=== PATIENT | female | born 1995 | race African-American/Black ===

== ENCOUNTER 2016-09-05 00:10 | Emergency (ER) | payer OTHER ==
[~2016-09-05] VITALS: Ht 170.2 cm; Wt 55.0 kg
[2016-09-05 00:13] VITALS: BP 142/88; PULSE 86; RESP 16; TEMP 98.2; O2SAT 100
--- NOTE | 2016-09-05 00:37 | PD ---
HPI Chief Complaint: Skin Problem Time Seen by Provider: 00:33 Travel History International Travel<30 days: No Contact w/Intl Traveler<30days: No Traveled to known affect area: No History of Present Illness HPI Patient comes in complaining of a pruritic rash right forearm that began approximately 2 hours prior to arrival. Patient denies doing anything for this prior to coming to the emergency department. Denies any respiratory involvement , throat closing sensation, spreading of the rash, known new environmental allergen exposure (including but not limited to: Soaps, lotions, detergents, medications, foods, drugs, pets, or furniture). Patient states she's had similar rashes in the past on her legs usually ago away after a day or 2 without any treatment. Patient states she got concerned as this was on her forearm and she's never had it there before. PFSH Past Medical History Medical History: Denies Significant Hx ?: Not Social History Tobacco Use: No Substance Use: No Allergies-Medications (Allergen,Severity, Reaction): Coded Allergies: No Known Allergies (Unverified , 09/05/16) Reported Meds & Prescriptions Reported Meds & Active Scripts Active Pepcid (Famotidine) 20 Mg Tab 20 Mg PO BID 10 Days Prednisone (21) 5 mg tab Dose Pack (Prednisone) 5 Mg Dspk 5 Mg PO DIRECTED Review of Systems Except as stated in HPI: all other systems reviewed are Neg Physical Exam Narrative GENERAL: Well-developed, well nourished, in no acute distress, and non-ill appearing. SKIN: Warm and dry. Smooth blanching rash noted on right forearm. It is nontender, afebrile, nonfluctuant, and without crepitus or drainage. HEAD: Atraumatic. Normocephalic. EYES: Pupils equal and round. EOMI. No scleral icterus. No injection or drainage. ENT: No nasal bleeding or discharge. Mucous membranes pink and moist. NECK: Trachea midline. Supple. No nuclear rigidity. CARDIOVASCULAR: Regular rate and rhythm. No murmur appreciated. RESPIRATORY: No accessory muscle use. No respiratory distress. Clear to auscultation. Breath sounds equal bilaterally. No stridor. MUSCULOSKELETAL: No obvious deformities. No clubbing. No cyanosis. No edema. Full range of motion. NEUROLOGICAL: Awake and alert. No obvious cranial nerve deficits. Motor grossly within normal limits. Normal speech. PSYCHIATRIC: Appropriate mood and affect; insight and judgment normal. Data Data Last Documented VS Vital Signs Date Time Temp Pulse Resp B/P Pulse Ox O2 Delivery O2 Flow Rate FiO2 09/05/16 00:13 98.2 86 16 142/88 100 Orders Prednisone (Deltasone) (09/05/16 00:45) Famotidine (Pepcid) (09/05/16 00:45) Cetirizine (Zyrtec) (09/05/16 00:45) MDM Medical Decision Making Medical Screen Exam Complete: Yes Emergency Medical Condition: Yes Differential Diagnosis Allergic reaction, rash, scabies, folliculitis, other Narrative Course There were no blisters or bullae, target lesions, purpura or petechia, nor vesiculobullous or scarlatiniform lesions. The patient looks great and was non- ill appearing. There was no evidence to suggest scabies, cellulitis, folliculitis or abscess, Staph. Scalded Skin Syndrome, Toxic Shock, Toxic Epidermal necrolysis, Kawasakis, Measles, Rubella, cutaneous T cell lymphoma, Erythema Multiforme (minor or major). Plan of care was discussed with the patient and the patient is to follow up with their physician. The patient agreed with plan. Patient in no obvious distress upon re-evaluation. Patient was asked if they wanted to speak to my attending, which the patient did not wish to do at this time. Any questions/concerns in reference to patient diagnosis/condition discussed and clarified prior to patient's discharge. Reinforced sheer importance of close follow up with patient's primary physician or primary care clinic. Instructed patient to return to ED immediately, if symptoms return/ worsen. Pt showed understanding of above instructions. Further instructions and recommendations were detailed in discharge paperwork. Pt ambulated without difficulty out of ED at discharge. Diagnosis Primary Impression: Rash Patient Instructions: Acute Rash (ED), General Instructions Additional Instructions: Follow-up with your primary care physician in 2-3 days for evaluation. Take all medication as prescribed. Use [id number] Benadryl or Claritin or Zyrtec as needed for symptomatic relief. Follow instructions on the packaging. Return to the emergency department if symptoms get worse. Med/Other Pt SpecificInfo: Prescription(s) given Scripts Famotidine (Pepcid)20 Mg Tab20 Mg PO BID 10 Days Ref 0 Prov:Yosi Rea MD 09/05/16 Prednisone (21) 5 mg tab Dose Pack 5 Mg Dspk5 Mg PO DIRECTED #1 DSPK Ref 0 Prov:Yosi Rea MD 09/05/16 Disposition: 01 DISCHARGE HOME Condition: Stable Juanito Huntley Sep 05, 2016 00:37
[2016-09-05] MEDS ORDERED: FAMO1TAB37 PO (00:38)
[2016-09-05] MEDS ORDERED: PRED5PAK PO (00:38)
[2016-09-05] MEDS ORDERED: FAMOTIDINE 20 MG TAB PO ONE (00:45)
[2016-09-05] MEDS ORDERED: predniSONE 20 MG TAB PO ONE (00:45)
[2016-09-05] MEDS ORDERED: CETIRIZINE HCL 10 MG TAB PO ONE (00:45)
== END 2016-09-05 01:45 | disposition home or self-care (01) ==
LOC: NEPB 00:10
DX: R21 Rash and other nonspecific skin eruption (principal)
CPT/HCPCS: 99282; J7512

== ENCOUNTER 2016-10-03 15:03 | Emergency (ER) | payer SELFPAY ==
[~2016-10-03] VITALS: Ht 165.1 cm; Wt 68.0 kg
[~2016-10-03 15:03] MED LIST: FAMO1TAB37 PO; PRED5PAK PO
[2016-10-03 15:05] VITALS: BP 144/71; PULSE 95; RESP 15; TEMP 98; O2SAT 99
--- NOTE | 2016-10-03 17:02 | PD ---
HPI Chief Complaint: Driller Machine Problem/Complaint Time Seen by Provider: 17:00 Travel History International Travel<30 days: No Contact w/Intl Traveler<30days: No Traveled to known affect area: No History of Present Illness HPI 21-year-old female presents to the emergency Department with complaint of vaginal swelling and discharge that started approximately 10 AM this morning. Reports itchiness to her vagina earlier, but not now. Denies foul odor, vaginal lesions, STD exposure. Denies dysuria, urinary frequency, hematuria. Denies abdominal pain, pelvic pain, nausea, vomiting, fever, chills. Denies vaginal bleeding. Has not taken any medications or tried any treatments to alleviate her symptoms. Last menstrual period was September 22. Denies contraception use. No known allergies. Denies significant past medical history. Dr. Amaro is her primary care provider. No other modifying factors or associated signs and symptoms. PFSH Past Medical History Diminished Hearing: No ?: Not LMP: 09/22/16 Social History Alcohol Use: Yes (OCC) Tobacco Use: No Substance Use: No Allergies-Medications (Allergen,Severity, Reaction): Coded Allergies: No Known Allergies (Unverified , 10/03/16) Reported Meds & Prescriptions Reported Meds & Active Scripts Active No Active Prescriptions or Reported Medications Review of Systems Except as stated in HPI: all other systems reviewed are Neg Physical Exam Narrative GENERAL: Well-nourished, well-developed female female patient, in no acute distress; afebrile, nontoxic-appearing SKIN: Warm and dry. HEAD: Atraumatic. Normocephalic. EYES: Pupils equal and round. No scleral icterus. No injection or drainage. ENT: Mucous membranes pink and moist. NECK: Trachea midline. No lymphadenopathy. CARDIOVASCULAR: Regular rate and rhythm. No murmur appreciated. RESPIRATORY: No accessory muscle use. Clear to auscultation. Breath sounds equal bilaterally. GASTROINTESTINAL: Abdomen soft, non-tender, nondistended. Bilateral pelvic region nontender to palpation. Hepatic and splenic margins not palpable. No guarding, rigidity, rebound tenderness. PELVIC: Speculum exam reveals slightly edematous and erythematous cervix with thick white discharge. Bimanual exam reveals no palpable masses or adnexa tenderness, no uterine tenderness. Negative cervical motion tenderness. MUSCULOSKELETAL: No obvious deformities. No clubbing. No cyanosis. No edema. NEUROLOGICAL: Awake and alert. No obvious cranial nerve deficits. Motor grossly within normal limits. Normal speech. PSYCHIATRIC: Appropriate mood and affect; insight and judgment normal. BACK: No CVA tenderness. Data Data Last Documented VS Vital Signs Date Time Temp Pulse Resp B/P Pulse Ox O2 Delivery O2 Flow Rate FiO2 10/03/16 15:05 98.0 95 15 144/71 99 Orders Gc And Chlamydia Pcr (10/03/16 16:29) Wet Prep Profile (10/03/16 16:29) Urinalysis - C+S If Indicated (10/03/16 16:29) Ed Urine Pregnancytest Poc (10/03/16 16:29) Azithromycin Powd Pack (Zithromax Powd P (10/03/16 17:30) Ceftriaxone Inj (Rocephin Inj) (10/03/16 17:30) Lidocaine 1% Inj (50 Ml) (Xylocaine 1% I (10/03/16 17:30) Labs Laboratory Tests Test 10/03/16 10/03/16 16:50 17:00 Urine Color LIGHT-YELLOW Urine Turbidity CLEAR Urine pH 6.5 Urine Specific [place] 1.014 Urine Protein NEG mg/dL Urine Glucose (UA) NEG mg/dL Urine Ketones NEG mg/dL Urine Occult Blood NEG Urine Nitrite NEG Urine Bilirubin NEG Urine Urobilinogen LESS THAN 2.0 MG/DL Urine Leukocyte Esterase SMALL Urine RBC 1 /hpf Urine WBC 1 /hpf Urine Squamous Epithelial <1 /hpf Cells Urine Mucus FEW /lpf Microscopic Urinalysis Comment CULT NOT INDICATED Clue Cells (Wet Prep) NONE SEEN Vaginal Trichomonas (Wet Prep) NONE SEEN Vaginal Yeast (Wet Prep) NONE SEEN MDM Medical Decision Making Medical Screen Exam Complete: Yes Emergency Medical Condition: Yes Medical Record Reviewed: Yes Differential Diagnosis Cervicitis, chlamydia, gonorrhea, bacterial vaginosis, vaginal yeast Narrative Course 21-year-old female with vaginal discharge and swelling times one day. Pelvic exam is unremarkable other than thick white vaginal discharge. Chlamydia and gonorrhea pending. Wet prep ordered. Urinalysis and urine ordered. 1724: Urinalysis with no signs of infection. Bacterial vaginosis, vaginal yeast, Trichomonas not detected. Urine negative. I will treat the patient empirically with Rocephin and azithromycin. Azithromycin and Rocephin ordered. Discussed follow-up with patient and she verbalizes understanding and agreement. Patient verbalizes understanding and agreement with treatment plan. Patient is medically cleared and stable for discharge. Discussed reasons to return to the emergency department. Instructed patient to follow up with primary care provider. Patient agrees with treatment plan. The patients vital signs are stable and the patient is stable for outpatient follow-up and treatment. Patient discharged home, stable and in no acute distress. Diagnosis Primary Impression: Cervicitis Referrals: Foreign Languages Department Chair Primary Care Physician Patient Instructions: Chlamydia (ED), General Instructions, Gonorrhea (ED), Sexually Transmitted Diseases (ED) Departure Forms: Tests/Procedures, Work Release Enter return to work date: Oct 04, 2016 Additional Instructions: Avoid sexual activity until you follow up with your primary care provider Inform all sexual partners within the past 3-6 months that they need to be evaluated and treated Use condoms every time you have sex Follow-up with primary care provider Follow-up with gynecology Return to the emergency department immediately with worsening of symptoms Med/Other Pt SpecificInfo: No Change to Meds, No Meds Exist/No RX given Scripts No Active Prescriptions or Reported Meds Disposition: 01 DISCHARGE HOME Condition: Stable Anitra Pierre Oct 03, 2016 17:02
[2016-10-03 17:14] LABS: BLOOD, URINE NEG (NEG); COMMENT (UR) CULT NOT INDICATED; CULTURE IF INDICATED CULT NOT INDICATED; GLUCOSE,URINE NEG (NEG); KETONE, URINE NEG (NEG); MUCUS URINE FEW /lpf (OCC); NITRITE,URINE NEG (NEG); PH, URINE 6.5 (5.0-8.5); SQUAMOUS EPITHELIAL CELL URINE <1 /hpf (0-5); URINE COLOR LIGHT-YELLOW (YELLW/STRAW)
[2016-10-03] MEDS ORDERED: AZITHROMYCIN PWD FOR SUSP 1 GM PACKET PO ONE (17:30)
[2016-10-03] MEDS ORDERED: LIDOCAINE HCL 1% 50 ML VIAL IM ONE (17:30)
[2016-10-03] MEDS ORDERED: cefTRIAXone 250 MG VIAL IM ONE (17:30)
[2016-10-03 17:55] VITALS: BP 132/74
[2016-10-03 19:34] LABS: CHLAMYDIA PCR DETECTED (NOT DETECT); NEISSERIA PCR NOT DETECTED (NOT DETECT)
== END 2016-10-03 17:56 | disposition home or self-care (01) ==
LOC: NEPA 15:03
DX: N72 Inflammatory disease of cervix uteri (principal)
CPT/HCPCS: 81001; 84703; 87210; 87491; 87591; 96372; 99283; J0696

== ENCOUNTER 2017-09-16 03:03 | Emergency (ER) | payer SELFPAY ==
[~2017-09-16] VITALS: Ht 165.1 cm; Wt 71.5 kg
[2017-09-16 03:05] VITALS: BP 148/89; PULSE 88; RESP 18; TEMP 99; O2SAT 99
[2017-09-16 03:14] VITALS: BP 143/75; PULSE 80; RESP 18; O2SAT 100
[2017-09-16] MEDS ORDERED: LORazepam 0.5 MG TAB PO ONE (03:30)
--- NOTE | 2017-09-16 03:58 | RADRPT ---
EXAM DATE/TIME: 09/16/2017 03:44 [facility] COMPARISON: No previous studies available for comparison. INDICATIONS : Patient complains of left sided chest pain and mild shortness of breath. MEDICAL HISTORY : None. SURGICAL HISTORY : None. ENCOUNTER: Initial ACUITY: 2 days PAIN SCORE: 5/10 LOCATION: Left Chest FINDINGS: PA and lateral views of the chest demonstrate the lungs to be symmetrically aerated without evidence of mass, infiltrate or effusion. The cardiomediastinal contours are unremarkable. Osseous structure s are intact. CONCLUSION: No acute cardiopulmonary disease. Yayo Gonzalez MD on September 16, 2017 at 3:57 Board Certified Radiologist. This report was verified electronically.
--- NOTE | 2017-09-16 03:59 | PD ---
HPI Chief Complaint: Chest Pain Time Seen by Provider: 03:15 Travel History International Travel<30 days: No Contact w/Intl Traveler<30days: No Traveled to known affect area: No History of Present Illness HPI Patient reports that [place] at the mall today [place] 8:00 in the evening by herself and suddenly she felt the shortness of breath panicky feeling in her left chest. She has a history of panic attacks in the past. She did not take any medication to alleviate the symptoms. She asked the security flex officer to sit with her until her past. And EMS arrived she declined to be transported at that time. She went home but her upper left chest and shoulder Hurting her she called her mother in the [facility] and discussed getting a plane ticket to come home because they thought this was depression and anxiety and panic. She did not take any medication she did not see another doctor and then she comes to the ER complaining of what she thinks is anxiety as is weird feeling in her left chest and shoulder FOR[facility]LY [facility], [facility] Past Medical History Medical History: Denies Significant Hx Diminished Hearing: No ?: Not LMP: 09/03/17 Past Surgical History Surgical History: No Previous Surgery Social History Alcohol Use: Yes ([facility]) Tobacco Use: No Substance Use: No Allergies-Medications (Allergen,Severity, Reaction): Coded Allergies: No Known Allergies (Unverified Adverse Reaction, Unknown, 09/16/17) Reported Meds & Prescriptions Reported Meds & Active Scripts Active No Active Prescriptions or Reported Medications Review of Systems Except as stated in HPI: all other systems reviewed are Neg Cardiovascular: Positive: Chest Pain or Discomfort Psychiatric: Positive: Anxiety Physical Exam Narrative GENERAL: Patient does not appear anxious does not appear toxic does not appear septic awake alert SKIN: Warm and dry. HEAD: Atraumatic. Normocephalic. EYES: Pupils equal and round. No scleral icterus. No injection or drainage. ENT: No nasal bleeding or discharge. Mucous membranes pink and moist. NECK: Trachea midline. No JVD. CARDIOVASCULAR: Regular rate and rhythm. RESPIRATORY: No accessory muscle use. Clear to auscultation. Breath sounds equal bilaterally. Chest wall has mild reproducible pain below the shoulder left-sided GASTROINTESTINAL: Abdomen soft, non-tender, nondistended. Hepatic and splenic margins not palpable. MUSCULOSKELETAL: Extremities without clubbing, cyanosis, or edema. No obvious deformities. NEUROLOGICAL: Awake and alert. No obvious cranial nerve deficits. Motor grossly within normal limits. Five out of 5 muscle strength in the arms and legs. Normal speech. PSYCHIATRIC: Appropriate mood and affect; insight and judgment normal. Data Data Last Documented VS Orders Orders Electrocardiogram (09/16/17 03:30) Ed Urine Pregnancytest Poc (09/16/17 03:30) Chest, Pa & Lat (09/16/17 ) Lorazepam (Ativan) (09/16/17 03:30) Ed Discharge Order (09/16/17 04:33) MDM Medical Decision Making Medical Screen Exam Complete: Yes Emergency Medical Condition: Yes Differential Diagnosis anxiety vs chest pain vs costochondrtis Pneumothorax Narrative Course chest xray normal and EKG NSR pt safe for discharge Diagnosis Primary Impression: Anxiety Scripts No Active Prescriptions or Reported Meds Disposition: 01 DISCHARGE HOME Condition: Myron Moore MD Sep 16, 2017 03:59
--- NOTE | 2017-09-16 17:48 | EKG ---
Date Performed: 09/16/2017 Time Performed: 03:21:56 PTAGE: 22 years EKG: Sinus rhythm WITH SINUS ARRHYTHMIA NORMAL ECG NO PREVIOUS TRACING DOCTOR: Bhavna Caballero Interpretating Date/Time 09/16/2017 17:45:47
== END 2017-09-16 04:47 | disposition home or self-care (01) ==
LOC: NEPC 03:03
DX: F41.9 Anxiety disorder, unspecified (principal)
CPT/HCPCS: 71046; 93005; 99284